=== PATIENT | male | born 1970 | race African-American/Black ===

== ENCOUNTER 2021-09-13 11:32 | Inpatient (IN) | payer MEDICAID, OTHER ==
[~2021-09-13] VITALS: Ht 177.8 cm; Wt 83.9 kg
[~2021-09-13 11:32] MED LIST: BACL-141; FAMO20TA8; INTE44DI; P20
[2021-09-13] MEDS ORDERED: SODIUM CHLORIDE 0.9% 1000ML BAG (SEPSIS BOLUS) IV ONE (12:00)
[2021-09-13] MEDS ORDERED: PIPERACILLIN/TAZ 3.375G PREMIX 50 ML IV ONE (12:00)
[2021-09-13] MEDS ORDERED: VANCOMYCIN 1G PREMIX 200 ML IV ONE (12:00)
[2021-09-13] MEDS ORDERED: ACETAMINOPHEN 650MG SUPP PR ONE (12:15)
[2021-09-13 12:18] LABS: HEMATOCRIT. 47.7 % (42.0-52.0); HEMOGLOBIN. 16.1 g/dL (14.0-18.0); MEAN CORPUSCULAR HEMOGLOBIN 27.4 pg (28.0-32.0); MEAN CORPUSCULAR VOLUME 80.9 fL (80.0-94.0); MEAN PLATELET VOLUME 7.6 fl (7.4-10.4); PLATELET 188 x1000/uL (130-400); RED BLOOD CELL COUNT 5.89 mill/uL (4.7-6.1)
[2021-09-13 12:26] LABS: CHLORIDE 110 mEq/L (98-107)
[2021-09-13 12:57] LABS: PLATELET ESTIMATE NORMAL
[2021-09-13] MEDS ORDERED: LIDOCAINE HCL 1% 10 MG/ML 10ML VIAL ONE (13:03)
[2021-09-13 15:48] LABS: CLARITY URINE CLOUDY (CLEAR); COLOR URINE DARK YELLOW (YELLOW); KETONES URINE TRACE (NEGATIVE); LEUKOCYTE ESTERASE URINE 2+ (NEGATIVE); NITRITE URINE POSITIVE (NEGATIVE); OCCULT BLOOD URINE 3+ (NEGATIVE); PH URINE 5.5 (4.5-8.0); PROTEIN URINE 1+ (NEGATIVE); SPECIFIC GRAVITY URINE 1.022 (1.005-1.030)
[2021-09-13] MEDS ORDERED: CLONIDINE 0.1MG TABLET PO PRN (17:45)
[2021-09-13] MEDS ORDERED: DOCUSATE SODIUM 100MG CAPSULE PO PRN (17:45)
[2021-09-13] MEDS ORDERED: HYDROCODONE/ACETAMINOPHEN 5/325MG TABLET PO PRN (17:45)
[2021-09-13] MEDS ORDERED: ACETAMINOPHEN 325MG TABLET PO PRN (17:45)
[2021-09-13] MEDS ORDERED: IPRATROPIUM/ALBUTEROL 0.5-3(2.5)MG/3ML NEB HHN PRN (17:45)
[2021-09-13 20:20] VITALS: BP 119/69
[2021-09-13 22:00] VITALS: BP 126/72
[2021-09-13] MEDS: ACETAMINOPHEN 325MG TABLET PO PRN (22:27)
[2021-09-13] MEDS: PIPERACILLIN/TAZOBACTAM 3.375 G in DEXTROSE 5% WATER 50 ML IV SCH (23:41)
[2021-09-14] VITALS (11 sets, daily range): BP systolic 115–132; BP diastolic 58–78
[2021-09-14 05:11] LABS: CHLORIDE 110 mEq/L (98-107)
[2021-09-14] MEDS: PIPERACILLIN/TAZOBACTAM 3.375 G in DEXTROSE 5% WATER 50 ML IV SCH ×3 (05:42→21:17)
[2021-09-14 06:03] LABS: BASOPHILS % 0.3 % (0.0-2.0); EOSINOPHILS % 0.5 % (0.0-5.0); HEMATOCRIT. 40.7 % (42.0-52.0); HEMOGLOBIN. 13.8 g/dL (14.0-18.0); LYMPHOCYTES % 12.7 % (20.0-50.0); MEAN CORPUSCULAR HEMOGLOBIN 27.5 pg (28.0-32.0); MEAN PLATELET VOLUME 7.8 fl (7.4-10.4); MONOCYTES % 6.4 % (2.0-8.0); NEUTROPHILS % 80.1 % (40.0-76.0); PLATELET 173 x1000/uL (130-400); RED BLOOD CELL COUNT 5.03 mill/uL (4.7-6.1)
[2021-09-14] MEDS ORDERED: POTASSIUM CHLORIDE 20MEQ/PACKET PO ONE (08:30)
[2021-09-14] MEDS ORDERED: LACTULOSE 20G/30ML UDC PO PRN (11:15)
[2021-09-14] MEDS ORDERED: BISACODYL 10MG SUPP PR PRN (11:15)
[2021-09-14] MEDS ORDERED: NALOXONE HCL 0.4MG/ML VIAL IV PRN (11:30)
[2021-09-14] MEDS: ACETAMINOPHEN 325MG TABLET PO PRN (21:16)
[2021-09-14] MEDS: LORAZEPAM 0.5MG TABLET PO PRN (21:16)
[2021-09-14] MEDS: ONDANSETRON HCL 4MG/2ML INJ IV PRN (21:16)
[2021-09-15] VITALS (13 sets, daily range): BP systolic 101–152; BP diastolic 38–85
[2021-09-15 05:20] LABS: HEMATOCRIT. 42.9 % (42.0-52.0); HEMOGLOBIN. 14.9 g/dL (14.0-18.0); MEAN CORPUSCULAR HEMOGLOBIN 27.7 pg (28.0-32.0); MEAN CORPUSCULAR VOLUME 79.8 fL (80.0-94.0); MEAN PLATELET VOLUME 7.6 fl (7.4-10.4); PLATELET 170 x1000/uL (130-400); RED BLOOD CELL COUNT 5.37 mill/uL (4.7-6.1); RED CELL DISTRIBUTION WIDTH 14.9 % (11.6-14.6)
[2021-09-15 05:33] LABS: CHLORIDE 109 mEq/L (98-107)
[2021-09-15 05:41] LABS: LDL CHOLESTEROL 97 mg/dL (5-100)
[2021-09-15 05:52] LABS: HDL CHOLESTEROL 51 mg/dL (40-59)
[2021-09-15] MEDS: PIPERACILLIN/TAZOBACTAM 3.375 G in DEXTROSE 5% WATER 50 ML IV SCH ×3 (06:31→21:33)
[2021-09-15 14:35] LABS: PLATELET ESTIMATE NORMAL
[2021-09-15] MEDS: LORAZEPAM 0.5MG TABLET PO PRN (21:33)
[2021-09-15] MEDS: ACETAMINOPHEN 325MG TABLET PO PRN (21:33)
[2021-09-15] MEDS: ONDANSETRON HCL 4MG/2ML INJ IV PRN (21:34)
[2021-09-16] VITALS (12 sets, daily range): BP systolic 113–154; BP diastolic 44–115
[2021-09-16] MEDS: PIPERACILLIN/TAZOBACTAM 3.375 G in DEXTROSE 5% WATER 50 ML IV SCH ×3 (05:50→21:11)
[2021-09-16] MEDS: BACLOFEN 10MG TABLET PO PRN ×2 (09:47→23:36)
[2021-09-16] MEDS ORDERED: METOPROLOL TARTRATE 25MG TABLET PO NR (12:00)
[2021-09-16] MEDS: METOPROLOL TARTRATE 25MG TABLET PO SCH (21:10)
[2021-09-17] VITALS (8 sets, daily range): BP systolic 106–124; BP diastolic 59–72
[2021-09-17] MEDS: PIPERACILLIN/TAZOBACTAM 3.375 G in DEXTROSE 5% WATER 50 ML IV SCH ×3 (06:07→21:05)
[2021-09-17] MEDS: METOPROLOL TARTRATE 25MG TABLET PO SCH ×2 (09:09→21:05)
[2021-09-18] VITALS (7 sets, daily range): BP systolic 108–117; BP diastolic 59–72
[2021-09-18] MEDS: PIPERACILLIN/TAZOBACTAM 3.375 G in DEXTROSE 5% WATER 50 ML IV SCH ×3 (05:33→21:24)
[2021-09-18] MEDS: METOPROLOL TARTRATE 25MG TABLET PO SCH ×2 (09:33→20:47)
[2021-09-18] MEDS ORDERED: LEVO500T89 MT (15:46)
[2021-09-18] MEDS: BACLOFEN 10MG TABLET PO PRN (16:01)
== END 2021-09-18 23:46 | DRG 720 ==
LOC: ER 11:32 → 5EST 16:08 → EDBEDREQTM 18:23 → EDBEDREQSVC 18:23 → ENRESERV 18:38 → CANRESERV 18:38 → ENRESERV 19:41 → CANRESERV 19:41 → ENRESERV 20:05
PROVIDERS: ADMIT Internal Medicine; ATTEND Internal Medicine
PROC: 02HV33Z Insertion of Infusion Device into Superior Vena Cava, Percutaneous Approach (ICD-10-PCS; principal; 2021-09-13)
PROC: B548ZZA Ultrasonography of Superior Vena Cava, Guidance (ICD-10-PCS; 2021-09-13)
DX: A41.9 Sepsis, unspecified organism (principal); G93.41 Metabolic encephalopathy; G82.50 Quadriplegia, unspecified; G35 Multiple sclerosis; E83.51 Hypocalcemia; S81.811A Laceration without foreign body, right lower leg, initial encounter; G93.89 Other specified disorders of brain; E87.6 Hypokalemia; N10 Acute pyelonephritis; Z66 Do not resuscitate; Z20.822 Contact with and (suspected) exposure to COVID-19; Z74.01 Bed confinement status; S81.812A Laceration without foreign body, left lower leg, initial encounter; X58.XXXA Exposure to other specified factors, initial encounter; Y93.89 Activity, other specified; Y92.89 Other specified places as the place of occurrence of the external cause; Y99.8 Other external cause status; R00.0 Tachycardia, unspecified; E87.2 Acidosis
CPT/HCPCS: 36415; 71045; 72141; 72146; 72148; 76937; 80048; 80053; 80061; 81003; 83605; 84145; 84484; 85025; 87077; 87186; 87426; 93005; 97162; 97166; 97530; 99291; C1725; J2405; J2543; J3370; J3490; J7030; J7060; A4315

== ENCOUNTER 2021-11-28 10:15 | Emergency (ER) | payer OTHER ==
[~2021-11-28] VITALS: Ht 188 cm; Wt 100.0 kg
[~2021-11-28 10:15] MED LIST changes: +LEVO500T90 MT
[2021-11-28] MEDS ORDERED: simvastatin (10:23)
[2021-11-28] MEDS ORDERED: prozac (10:23)
[2021-11-28] MEDS ORDERED: IOHEXOL-350 100 ML BOTTLE ONE (11:37)
[2021-11-28 12:16] LABS: BASOPHILS % 0.4 % (0.0-2.0); EOSINOPHILS % 0.1 % (0.0-5.0); HEMATOCRIT. 49.4 % (42.0-52.0); HEMOGLOBIN. 16.5 g/dL (14.0-18.0); LYMPHOCYTES % 8.7 % (20.0-50.0); MEAN CORPUSCULAR HEMOGLOBIN 27.1 pg (28.0-32.0); MEAN CORPUSCULAR VOLUME 81.1 fL (80.0-94.0); MEAN PLATELET VOLUME 7.6 fl (7.4-10.4); MONOCYTES % 9.5 % (2.0-8.0); NEUTROPHILS % 81.3 % (40.0-76.0); PLATELET 181 x1000/uL (130-400); RED BLOOD CELL COUNT 6.08 mill/uL (4.7-6.1); RED CELL DISTRIBUTION WIDTH 14.8 % (11.6-14.6)
[2021-11-28 12:24] LABS: CHLORIDE 106 mEq/L (98-107)
[2021-11-28 12:33] LABS: ETHANOL BLOOD < 10 mg/dL
[2021-11-28] MEDS ORDERED: ACETAMINOPHEN 325MG TABLET PO ONE (14:00)
[2021-11-28] MEDS ORDERED: VANCOMYCIN 1G PREMIX 200 ML IV ONE (14:00)
[2021-11-28] MEDS ORDERED: CEFTRIAXONE 1 G PREMIX 50 ML IV ONE (14:00)
[2021-11-28] MEDS ORDERED: SODIUM CHLORIDE 0.9% 1000ML BAG (SEPSIS BOLUS) IV ONE (14:00)
[2021-11-28 15:17] LABS: CLARITY URINE CLEAR (CLEAR); COLOR URINE YELLOW (YELLOW); KETONES URINE NEGATIVE (NEGATIVE); LEUKOCYTE ESTERASE URINE NEGATIVE (NEGATIVE); NITRITE URINE NEGATIVE (NEGATIVE); OCCULT BLOOD URINE 1+ (NEGATIVE); PH URINE 6.5 (4.5-8.0); PROTEIN URINE NEGATIVE (NEGATIVE)
[2021-11-28 15:33] LABS: *AMPHETAMINES SCREEN URINE NEGATIVE (NEGATIVE); *BARBITURATES SCREEN URINE NEGATIVE (NEGATIVE); *BENZODIAZEPINES SCREEN URINE NEGATIVE (NEGATIVE); *COCAINE SCREEN URINE NEGATIVE (NEGATIVE); CANNABINOID URINE SCREEN NEGATIVE (NEGATIVE); METHADONE URINE SCREEN NEGATIVE (NEGATIVE); OPIATES URINE SCREEN NEGATIVE (NEGATIVE); PHENCYCLIDINE URINE SCREEN NEGATIVE (NEGATIVE)
[2021-11-28 16:00] VITALS: BP 125/69
== END 2021-11-28 19:22 | disposition short-term general hospital (02) ==
LOC: ER 10:15
DX: A41.9 Sepsis, unspecified organism (principal); R41.82 Altered mental status, unspecified; I10 Essential (primary) hypertension; F03.90 Unspecified dementia, unspecified severity, without behavioral disturbance, psychotic disturbance, mood disturbance, and anxiety; G35 Multiple sclerosis; Z20.822 Contact with and (suspected) exposure to COVID-19; Z66 Do not resuscitate
CPT/HCPCS: 36415; 70450; 70496; 70498; 71045; 80053; 80305; 80320; 81003; 82140; 82962; 83605; 85025; 87040; 87086; 87426; 93005; 96365; 96366; 96368; 99291; C9803; J0696; J3370; J7030; Q9967; G0480